=== PATIENT | female | born 1960 | race African-American/Black ===

== ENCOUNTER 2016-11-27 01:16 | Emergency (ER) | payer OTHER ==
[~2016-11-27] VITALS: Ht 160 cm; Wt 88.0 kg
[2016-11-27 02:10] LABS: CHLORIDE 108 mEq/L (99-109); POTASSIUM 4.2 mEq/L (3.7-5.4); SODIUM 144 mEq/L (136-147)
[2016-11-27 02:12] LABS: GLUCOSE 102 mg/dL (70-99)
[2016-11-27 02:14] LABS: ANION GAP 8 MEQ/L (2-14)
[2016-11-27 02:17] LABS: UREA NITROGEN (BUN) 16 mg/dL (9-23)
[2016-11-27 02:20] LABS: TROP-I INTERPRETATION NEGATIVE; TROPONIN-I < 0.01 ng/mL (0.0-0.30)
[2016-11-27 02:21] LABS: GFR ESTIMATE (CALCULATED) > 59 mL/min/
[2016-11-27 02:23] LABS: HEMATOCRIT 32.8 % (36.0-46.0); MCHC 32.3 G/DL (30.0-36.0); MCV 61.8 FL (83-99); RBC DIS.WIDTH-CV 16.8 % (11.8-14.6); RBC DIS.WIDTH-SD 36.7 % (39-53); RED BLOOD COUNT 5.31 M/uL (3.80-5.20); WHITE BLOOD COUNT 6.9 K/uL (4.1-10.2)
[2016-11-27 02:54] LABS: MEAN PLAT.VOLUME 10.9 uM^3 (9.5-12.4); PLATELET COUNT 238 K/uL (156-360); PTT 25.4 (25-32)
[2016-11-27 02:56] LABS: TOTAL BILIRUBIN 0.1 mg/dL (0.0-1.0)
[2016-11-27 02:57] LABS: ALKALINE PHOSPHATASE 71 IU/L (3-129)
[2016-11-27 02:59] LABS: DIRECT BILIRUBIN 0.1 mg/dL (0.0-0.3)
[2016-11-27 03:00] LABS: LIPASE 85 U/L (1.0-51.0)
[2016-11-27 04:18] VITALS: BP 154/89
== END 2016-11-27 04:20 | disposition home or self-care (01) ==
LOC: EME 01:16
DX: I10 Essential (primary) hypertension (principal); T44.7X5A Adverse effect of beta-adrenoreceptor antagonists, initial encounter; R51 Headache; R73.03 Prediabetes
CPT/HCPCS: 70450; 71020; 80048; 80076; 83690; 84484; 85027; 85610; 85730; 93005; 99281; 99284